=== PATIENT | female | born 1990 | race Caucasian/White ===

== ENCOUNTER 2020-02-14 20:22 | Emergency (ER) | payer OTHER ==
[~2020-02-14] VITALS: Ht 160 cm; Wt 81.7 kg
--- NOTE | 2020-02-14 20:49 | NUR ---
PT REPORTS N/V X5 DAYS, WORSE TODAY AND POSSIBLE ALLERGIC REACTION, HAS SWELLING AROUND LIPS.
[2020-02-14] MEDS ORDERED: ONDANSETRON ODT 4 MG ONE (20:51)
[2020-02-14] MEDS ORDERED: ONDANSETRON 2MG/ML, 2ML ONE (20:52)
[2020-02-14] MEDS ORDERED: birth control pills (21:04)
--- NOTE | 2020-02-14 21:16 | NUR ---
ERP AT BEDSIDE FOR EVAL.
[2020-02-14] MEDS ORDERED: methylPREDNISolone SOD SUCC 125 MG/2 ML ONE (21:22)
[2020-02-14] MEDS ORDERED: PROCHLORPERAZINE 5 MG/ML, 2ML ONE (21:22)
[2020-02-14] MEDS ORDERED: PROCHLORPERAZINE 5 MG/ML, 2ML IVPush ONE (21:30)
[2020-02-14] MEDS ORDERED: SODIUM CHLORIDE FLUSH 10ML SYR IVF ONE (21:30)
[2020-02-14] MEDS ORDERED: methylPREDNISolone SOD SUCC 125 MG/2 ML IVPush SCH (21:30)
[2020-02-14] MEDS ORDERED: SODIUM CHLORIDE 0.9% 1,000ML IVBOLUS ONE (21:30)
[2020-02-14 21:34] LABS: BASOPHILS # (AUTO) 0.06 x10^3/uL (0-0.1); BASOPHILS % (AUTO) 1 % (0-1); EOSINOPHILS # (AUTO) 0.01 x10^3/uL (0-0.4); EOSINOPHILS % (AUTO) 0 % (1-7); LYMPHOCYTES # (AUTO) 2.85 x10^3/uL (1-3.4); LYMPHOCYTES % (AUTO) 30 % (22-44); MD NO; MEAN CORPUSCULAR HEMOGLOBIN 29.3 pg (27.0-34.8); MEAN CORPUSCULAR VOLUME 88.8 fL (80-100); MEAN PLATELET VOLUME 8.5 fL (7.4-10.4); MONOCYTES # (AUTO) 0.31 x10^3/uL (0.2-0.8); MONOCYTES % (AUTO) 3 % (2-9); NEUTROPHILS # (AUTO) 6.24 x10^3/uL (1.8-6.8); NEUTROPHILS % (AUTO) 66 % (42-75); PLATELET COUNT 257 x10^3/uL (130-400); RED BLOOD COUNT 4.67 x10^6/uL (3.82-5.3); RED CELL DISTRIBUTION WIDTH 12.1 % (9.6-15.2)
[2020-02-14 21:44] LABS: ALANINE AMINOTRANSFERASE 39 U/L (12-78); ALBUMIN 3.6 g/dL (3.4-5.0); ANION GAP 8 mmol/L (5-15); CALCIUM 9.1 mg/dL (8.5-10.1); CHLORIDE 107 mmol/L (98-107); CREATININE 0.95 mg/dL (0.55-1.02)
[2020-02-14 21:48] LABS: ALKALINE PHOSPHATASE 71 U/L (45-117); BILIRUBIN,TOTAL 0.3 mg/dL (0.2-1.0); TOTAL PROTEIN 7.3 g/dL (6.4-8.2)
--- NOTE | 2020-02-14 22:06 | NUR ---
URINE SAMPLE COLLECTED AND SENT. PT TAKEN TO CT.
[2020-02-14] MEDS ORDERED: OMNIPAQUE 350 MG/ML, 100ML BOTTLE ONE (22:15)
[2020-02-14 22:21] LABS: MICROSCOPIC AUTO
--- NOTE | 2020-02-14 22:27 | NUR ---
IV REMOVED PER PT REQUEST C/O TENDERNESS, IV SITE INTACT NO REDNESS, + BLOOD RETURN, DC'D PER PT REQUEST, TIP INTACT.
[2020-02-14 22:45] VITALS: BP 134/62
== END 2020-02-14 23:06 | disposition home or self-care (01) ==
LOC: ED 21:53
DX: R11.2 Nausea with vomiting, unspecified (principal); R10.32 Left lower quadrant pain; R19.7 Diarrhea, unspecified
CPT/HCPCS: 36415; 74177; 80053; 81001; 83690; 84703; 85025; 87086; 96361; 96374; 96375; 99285; J0780; J2930; J7030; Q9967; 87147